=== PATIENT | female | born 1940 | race Two or more races ===

== ENCOUNTER 2018-10-06 12:12 | Emergency (ER) | payer MEDICARE | END 2018-10-06 14:49 | disposition home or self-care (01) | LOC: FTE 14:49 | DX: S80.01XA Contusion of right knee, initial encounter (principal); S60.212A Contusion of left wrist, initial encounter; S20.212A Contusion of left front wall of thorax, initial encounter; I10 Essential (primary) hypertension; W18.39XA Other fall on same level, initial encounter; Y92.9 Unspecified place or not applicable | CPT/HCPCS: 29125; 71100; 73110-LT; 73130-LT; 73562; 73630-LT; 99284-25 ==